=== PATIENT | male | born 1965 | race Caucasian/White ===

== ENCOUNTER 2017-04-22 11:10 | Observation (INO) ==
[2017-04-22] MEDS ORDERED: SODIUM CHLORIDE 0.9% 1,000 ML IV STA (11:40)
[2017-04-22] MEDS ORDERED: KETOROLAC 30 MG/1 ML VIAL IV STA (11:40)
[2017-04-22] MEDS ORDERED: THIAMINE INJ 100 MG, FOLIC ACID INJ 1 MG, MAGNESIUM SULF INJ 2 GM, MULTIVITAMIN INJ 10 ... IV ONE (11:43)
[2017-04-22] MEDS ORDERED: KETOROLAC 30 MG/1 ML VIAL ONE (11:57)
[2017-04-22 12:54] LABS: Basophils # 0.1 10*3/uL (0.0-0.2); Basophils % 1.2 % (0.0-0.8); Eosinophils # 0.2 10*3/uL (0.0-0.87); Eosinophils % 2.2 % (0.00-10.9); Hemoglobin 14.5 GM/DL (14.0-18.0); Immature Granulocytes % 0.3 %; Immature Granulocytes Absolute 0.02 #; Lymphocytes # 1.5 10*3/uL (1.4-4.0); Lymphocytes % 20.9 % (21.2-54.2); Mean Corpuscular HGB Conc 33.7 GM/DL (32-36); Mean Corpuscular Hemoglobin 32 PG (27-34); Mean Corpuscular Volume 94.9 FL (87-102); Mean Platelet Volume 9.8 FL (9.6-12.0); Monocytes # 0.6 10*3/uL (0.11-0.8); Monocytes % 8.4 % (1.7-12.7); Neutrophils # 4.8 10*3/uL (1.4-7.4); Platelet Count 199 T/CUMM (130-400); Red Blood Count 4.53 MC/CUMM (3.8-5.5); White Blood Count 7.2 T/CUMM (4-12)
[2017-04-22 13:17] LABS: Ammonia 24 UMOL/L (11-32)
[2017-04-22 13:36] LABS: Albumin 3.4 G/DL (3.4-5.0); Bilirubin,Total 0.6 MG/DL (0.2-1.0); Calcium 8.3 MG/DL (8.5-10.1); Osmolality,Calculated 288.1 MOS/KG (273-304); Potassium 4.4 MMOL/L (3.5-5.1); Total Protein 6.9 G/DL (6.4-8.3)
[2017-04-22 13:40] LABS: Amorphous Crystals,Urine Occasional /HPF (Few); Apearance,Urine Slightly Hazy (Clear); Bacteria,Urine Occasional /HPF (Few); Bilirubin,Urine Negative (Negative); Blood, Urine Small mg/dL (Negative); Glucose,Urine (UA) Negative (Negative); Hyaline Casts,Urine 5 /LPF (0-3); Ketones,Urine Negative (Negative); Mucus,Urine Occasional /LPF (Occasional); Nitrite,Urine Negative (Negative); Protein,Urine 100 MG/DL; RBC,Urine 5 /HPF (0-4); Squamous Epithelial Cell,Urine Occasional /HPF (0-10); Urine Color Yellow (Yellow); Urine Specific Gravity 1.014 (1.001-1.035); Urine Urobilinogen < 2.0 EU/DL (0.2-1.0); WBC,Urine 46 /HPF (0-6)
[2017-04-22 13:57] LABS: Barbiturates Screen,Urine Negative (Negative); Benzodiazepines Screen,Urine Negative (Negative); Cannabinoid Screen,Urine Negative (Negative); Opiate Screen,Urine Negative (Negative); Phencyclidine Screen,Urine Negative (Negative)
[2017-04-22] MEDS ORDERED: CIPROFLOXACIN INJ 400 MG in PREMIX 1 EACH IV STA (14:37)
[2017-04-22] MEDS ORDERED: CIPROFLOXACIN 400 MG/200 ML PREMIX IV ONE (15:02)
[2017-04-22] MEDS ORDERED: NIFEdipine 10 MG CAPSULE PO PRN (15:37)
[2017-04-22] MEDS ORDERED: IBUPROFEN 800 MG TABLET PO PRN (15:40)
[2017-04-22] MEDS ORDERED: ONDANSETRON 4 MG/2 ML VIAL IV PRN (15:40)
[2017-04-22] MEDS ORDERED: ACETAMINOPHEN 325 MG TABLET PO PRN (15:40)
[2017-04-22] MEDS ORDERED: ZALEPLON 5 MG CAPSULE PO PRN (15:40)
[2017-04-22] MEDS ORDERED: CYCLOBENZAPRINE 10 MG TABLET PO PRN (15:40)
[2017-04-22] MEDS ORDERED: ENOXAPARIN 40 MG/0.4 ML SYRINGE SUBCUT SCH (16:00)
[2017-04-22] MEDS: SODIUM CHLORIDE 0.9% 1,000 ML IV SCH ×2 (16:47→20:25)
[2017-04-22] MEDS: methylPREDNISolone 4 MG TABLET PO SCH ×2 (17:11→20:29)
[2017-04-22] MEDS: HYDROmorphone 2 MG/1 ML VIAL IV PRN ×2 (17:12→22:37)
[2017-04-22] MEDS: CIPROFLOXACIN 500 MG TABLET PO SCH (20:29)
[2017-04-22] MEDS: LORazepam 1 MG TABLET PO PRN (22:37)
[2017-04-23] MEDS: HYDROmorphone 2 MG/1 ML VIAL IV PRN ×2 (02:41→09:18)
[2017-04-23] MEDS: SODIUM CHLORIDE 0.9% 1,000 ML IV SCH ×2 (04:32→09:22)
[2017-04-23 05:49] LABS: Basophils % 0.6 % (0.0-0.8); Eosinophils % 0.2 % (0.00-10.9); Hematocrit 41.5 VOL% (42.0-52.0); Immature Granulocytes % 0.4 %; Immature Granulocytes Absolute 0.02 #; Lymphocytes # 0.5 10*3/uL (1.4-4.0); Mean Corpuscular HGB Conc 33.7 GM/DL (32-36); Mean Corpuscular Hemoglobin 32 PG (27-34); Mean Corpuscular Volume 95.6 FL (87-102); Mean Platelet Volume 10.3 FL (9.6-12.0); Monocytes # 0.2 10*3/uL (0.11-0.8); Neutrophils # 3.8 10*3/uL (1.4-7.4); Neutrophils % 82.8 % (38.7-73.9); Platelet Count 165 T/CUMM (130-400); Red Blood Count 4.34 MC/CUMM (3.8-5.5); Red Cell Distribution Width 13.5 % (9.3-17.3); White Blood Count 4.6 T/CUMM (4-12)
[2017-04-23 06:24] LABS: Blood Urea Nitrogen 29 MG/DL (7-18); Calcium 8.3 MG/DL (8.5-10.1); Glucose 138 MG/DL (74-106); Magnesium 1.7 MG/DL (1.8-2.4); Osmolality,Calculated 282.7 MOS/KG (273-304); Potassium 5.6 MMOL/L (3.5-5.1); Sodium 138 MMOL/L (136-145); Troponin I Only < 0.015 NG/ML (0.00-0.045)
[2017-04-23] MEDS ORDERED: CITALOPRAM 20 MG TABLET PO SCH (09:00)
[2017-04-23] MEDS ORDERED: NON-FORMULARY MEDICATION (Methylprednisolone Dosepak 4 MG) PO SCH (09:00)
[2017-04-23] MEDS ORDERED: METHYLPREDNISOLONE PO SCH ×2 (09:00→18:00)
[2017-04-23] MEDS ORDERED: PANTOPRAZOLE 40 MG TABLET PO SCH (09:00)
[2017-04-23] MEDS ORDERED: SODIUM POLYSTYRENE SULFATE 15 GM/60 ML BOTTLE PO ONE (09:03)
[2017-04-23] MEDS: LORazepam 1 MG TABLET PO PRN (09:18)
[2017-04-23] MEDS: CIPROFLOXACIN 500 MG TABLET PO SCH (09:18)
[2017-04-23] MEDS: methylPREDNISolone 4 MG TABLET PO SCH (09:18)
[2017-04-23 12:40] VITALS: BP 144/83
== END 2017-04-23 13:39 | disposition home or self-care (01) ==
LOC: EDUNIT# → EDBD → N.ED 11:10 → N.EDINP 11:10 → SUATTDRO 14:43 → N.5E 15:34
PROVIDERS: ADMIT Internal Medicine; ATTEND Internal Medicine